=== PATIENT | female | born 1960 | race Caucasian/White ===

== ENCOUNTER 2020-07-14 13:23 | Emergency (ER) | payer BC ==
[~2020-07-14] VITALS: Ht 170.2 cm; Wt 136.4 kg
[2020-07-14] MEDS ORDERED: ASPIRIN 81 MG CHEW TABLET PO ONE (13:45)
[2020-07-14] MEDS ORDERED: ASPI81TA86 PO (13:53)
[2020-07-14] MEDS ORDERED: OMEP-218 PO (13:53)
[2020-07-14] MEDS ORDERED: LOSA100T50 PO (13:53)
[2020-07-14] MEDS ORDERED: PRAZ5CAP PO (13:53)
[2020-07-14] MEDS ORDERED: CALC600T57 PO (13:53)
[2020-07-14] MEDS ORDERED: TOPR100T PO (13:53)
[2020-07-14] MEDS ORDERED: ZETI10TA16 PO (13:53)
[2020-07-14] MEDS ORDERED: AMIL5TAB4 PO (13:53)
[2020-07-14] MEDS ORDERED: KLOR20TA42 PO (13:53)
[2020-07-14] MEDS ORDERED: LEVO200T4 PO (13:53)
[2020-07-14] MEDS ORDERED: LEVO25TA5 PO (13:53)
[2020-07-14] MEDS ORDERED: FURO40TA2 PO (13:53)
[2020-07-14 14:06] LABS: BASO % 0.3 % (0.0-1.0); EOS # 0.1 10^3/uL (0.0-0.5); HEMOGLOBIN 13.6 g/dl (12.0-15.5); LYMPH # 2.3 10^3/uL (1.5-5.0); LYMPH % 25.7 % (24.0-44.0); MEAN CORPUSCULAR HGB CONC 34.9 g/dl (32.0-36.5); MEAN CORPUSCULAR VOLUME 94.7 fl (80.0-96.0); MONO # 0.6 10^3/uL (0.0-0.8); MONO % 6.5 % (0.0-5.0); NEUTROPHILS # 5.9 10^3/uL (1.5-8.5); NEUTROPHILS % 66.2 % (36.0-66.0); PLATELET COUNT, AUTOMATED 222 10^3/uL (150-450); RED BLOOD COUNT 4.12 10^6/uL (4.00-5.40)
[2020-07-14 14:18] LABS: INR 0.97; PARTIAL THROMBOPLASTIN TIME 24.4 SECONDS (24.2-38.5); PROTHROMBIN TIME 13.1 SECONDS (12.5-14.3)
[2020-07-14] MEDS ORDERED: ISOS30TA4 PO (14:25)
[2020-07-14 14:35] LABS: ALBUMIN 3.7 GM/DL (3.2-5.2); ALT/SGPT 34 U/L (12-78); BILIRUBIN,DIRECT 0.2 MG/DL (0.0-0.2); BILIRUBIN,TOTAL 0.8 MG/DL (0.2-1.0); BLOOD UREA NITROGEN 32 MG/DL (7-18); CALCIUM LEVEL 9.3 MG/DL (8.8-10.2); CARBON DIOXIDE LEVEL 29 MEQ/L (21-32); CHLORIDE LEVEL 104 MEQ/L (98-107); CK-MB VALUE MASS 1.3 NG/ML (<3.6); CPK CREATINE PHOSPHOKINASE 66 U/L (26-192); CREATININE FOR GFR 0.83 MG/DL (0.55-1.30); FREE T4 1.61 NG/DL (0.76-1.46); GLOMERULAR FILTRATION RATE > 60.0 (>45); GLUCOSE, FASTING 100 MG/DL (70-100); LIPASE 143 U/L (73-393); MB/CK RELATIVE INDEX 1.97 (< OR =4); POTASSIUM SERUM 3.9 MEQ/L (3.5-5.1); SODIUM LEVEL 138 MEQ/L (136-145); THYROID STIMULATING HORMONE 0.905 uIU/ML (0.358-3.740); TOTAL PROTEIN 6.9 GM/DL (6.4-8.2); TROPONIN I 0.03 NG/ML (< 0.10)
--- NOTE | 2020-07-14 14:45 | REPVR ---
PROCEDURE INFORMATION: Exam: XR Chest, 1 View Exam date and time: 07/14/2020 2:10 PM Age: 60 years old Clinical indication: Chest pain; On breathing TECHNIQUE: Imaging protocol: XR of the chest Views: 1 view. COMPARISON: No relevant prior studies available. FINDINGS: Tubes, catheters and devices: ECG leads/contacts overlie and partially obscure the anatomy. Lungs: No pulmonary consolidation or edema. Pleural space: No evident pleural effusion. No evident pneumothorax. Heart/Mediastinum: Heart size is borderline enlarged, given the portable AP technique. The mediastinal contours are otherwise unremarkable. Bones/joints: Nonspecific approximately 1.4 cm calcific density adjacent to the right humeral head, possibly representing a glenohumeral joint loose body or rotator cuff calcification. IMPRESSION: Borderline cardiomegaly. Electronically signed by: Jaskaran Dorado On 07/14/2020 14:45:24 PM
[2020-07-14] MEDS ORDERED: ISOVUE-370 76% 100ML VIAL As Ordered ONE (15:04)
--- NOTE | 2020-07-14 16:13 | REPVR ---
PROCEDURE INFORMATION: Exam: CT Angiography Chest With Contrast Exam date and time: 07/14/2020 3:29 PM Age: 60 years old Clinical indication: Other: Chest pain rad to back TECHNIQUE: Imaging protocol: Computed tomographic angiography of the chest with intravenous contrast. 3D rendering (Not supervised by radiologist): MIP and/or 3D reconstructed images were created by the technologist. Radiation optimization: All CT scans at this facility use at least one of these dose optimization techniques: automated exposure control; mA and/or kV adjustment per patient size (includes targeted exams where dose is matched to clinical indication); or iterative reconstruction. Contrast material: ISOVUE 370; Contrast volume: 75 ml; Contrast route: INTRAVENOUS (IV); COMPARISON: CR PORTABLE CHEST X-RAY 07/14/2020 2:06 PM FINDINGS: Pulmonary arteries: Pulmonary arteries are unremarkable. No filling defects. Aorta: Mild atherosclerotic calcifications of the aorta. No evidence of dissection or aneurysm. Lungs: 0.9 cm nodule in the right upper lobe (series 401, image 84). Pleural space: No pleural effusion or pneumothorax. Heart: Unremarkable. No pericardial effusion. Lymph nodes: No enlarged lymph nodes. Bones/joints: Multilevel mild degenerative changes of the visualized spine. No acute fracture. Soft tissues: Unremarkable. IMPRESSION: 1. No acute findings in the thorax. 2. 0.9 cm nodule in the right upper lobe. For both low risk and high risk patients, consider CT at 3 months, PET/CT or biopsy. (Michelle et al., Fleischner Society, 2017). 3. Other chronic findings, as above. Electronically signed by: Lj Aggarwal On 07/14/2020 16:13:32 PM
--- NOTE | 2020-07-14 16:21 | ECGEPIP ---
[facility] - ED Test Date: 2020-07-14 Pat Name: DONALDO SKINNER Department: Room: - Gender: Female [employer] Final Inspector: ELISHA : [id number] Requested By: Amy Pruitt Order Number: [id number] Reading MD: Amy Pruitt Measurements Intervals [place] Rate: 59 P: 6 HI: 203 QRS: -1 QRSD: 104 T: 19 QT: 412 QTc: 409 Interpretive Statements SINUS BRADYCARDIA PROBABLE BASELINE ARTIFACT LIMITS INTERPRETATION POSSIBLE INFERIOR MYOCARDIAL INFARCTION, PROBABLY OLD NSTTW abnormalities VS ARTFACT NO PRIOR Electronically Signed on 07-14-2020 16:21:32 EDT by Amy Prutit
[2020-07-14] MEDS ORDERED: HEPARIN DRIP 25,000 UNITS in IV 1 EA IV SCH (16:59)
[2020-07-14] MEDS ORDERED: CLOPIDOGREL 300 MG TAB (PLAVIX) PO ONE (17:00)
[2020-07-14] MEDS ORDERED: HEPARIN SOD (PORCINE) 5000UNITS/ML 1ML VIAL/SYRINGE IV ONE (17:00)
[2020-07-14 18:39] VITALS: BP 170/40
== END 2020-07-14 18:48 | disposition short-term general hospital (02) ==
LOC: M ED 13:23
DX: I20.0 Unstable angina (principal); R00.1 Bradycardia, unspecified; I10 Essential (primary) hypertension; R91.1 Solitary pulmonary nodule; Z79.82 Long term (current) use of aspirin; Z79.899 Other long term (current) drug therapy; Z88.5 Allergy status to narcotic agent
CPT/HCPCS: 36415; 71045; 71275; 80048; 80076; 82550; 82553; 83690; 84439; 84443; 85025; 85610; 85730; 93005; 93041; 94760; 99291; J1644; Q9967